=== PATIENT | female | born 1995 | race Caucasian/White ===

== ENCOUNTER 2019-04-08 07:52 | Inpatient (IN) | payer OTHER ==
[~2019-04-08] VITALS: Ht 172.7 cm; Wt 71.0 kg
--- OUTSIDE RECORDS SUMMARY | ~2019-04-08 | XMS | Clinical Summary ---
Demographics + + + | Address | [address] | | | [place] [address] | + + + | Home Phone | | + + + | Preferred Language | Unknown | + + + | Marital Status | Single | + + + | Baptist Affiliation | Unknown | + + + | Race | Unknown | + + + | Ethnic Group | Unknown | + + + Author + + + | Author | [facility] | | | and [place] | + + + | Organization | [facility] | | | and [place] | + + + | Address | Unknown | + + + | Phone | Unavailable | + + + Support + + + + + | Name | Relationship | Address | Phone | + + + + + | Nolan Velasco | ECON | N/A | | | | | [place] [address] | | + + + + + | Thomas Velasco | ECON | [address] | | | [place] | | [place] | | | | | [address] | | + + + + + Care Team Providers + +------+ + | Care Bus Matron Name | Role | Phone | + +------+ + PCP | Unavailable | + +------+ + Allergies Not on File Medications Not on file Active Problems Not on file Social History + +-------+ +--------+------+ | Tobacco Use | Types | Packs/Day | Years | Date | | | | | Used | | + +-------+ +--------+------+ | Never Assessed | | | | | + +-------+ +--------+------+ + + + | Sex Assigned at | Date Recorded | | | | + + + | Not on file | | + + + + + + + | Job Start Date | Occupation | Industry | + + + + | Not on file | Not on file | Not on file | + + + + + + + + | Travel History | Travel Start | Travel End | + + + + + + | No recent travel history available. | + + Last Filed Vital Signs Not on file Plan of Treatment + + + + + | Health Maintenance | Due Date | Last Done | Comments | + + + + + | Vaccine: HPV (1 - | | | | | Female 3-dose | 2 | | | | series) | | | | + + + + + | Vaccine: | | | | | Dtap/Tdap/Td (1 - | 6 | | | | Tdap) | | | | + + + + + | Cervical Cancer | | | | | Screening (Pap) | 8 | | | + + + + + | Vaccine: Influenza | | | | | (#1) | 9 | | | + + + + + Results Not on filefrom Last 3 Months"
--- OUTSIDE RECORDS SUMMARY | ~2019-04-08 | XMS ---
Demographics + + + | Address | [address] | | | [place] [address] | + + + | Preferred Language | Unknown | + + + | Marital Status | Unknown | + + + | Amish Affiliation | Unknown | + + + | Race | Unknown | + + + | Ethnic Group | Unknown | + + + Author + + + | Author | [facility] | + + + | Organization | [facility] | + + + | Address | [address] | | | [place] [address] | + + + | Phone | | + + + Care Team Providers + + + + | Care Stock Worker And Deliverer Name | Role | Phone | + + + + Unavailable | Unavailable | + + + + PROBLEMS +---------+ + + +--------+ + + | Type | Condition | ICD9-CM | [id number] | Onset | Condition | SNOMED | | | | Code | Code | Dates | Status | Code | +---------+ + + +--------+ + + | Problem | Depression | 311 | | | Active | [id number] | +---------+ + + +--------+ + + ALLERGIES Unknown Allergies SOCIAL HISTORY No smoking Hx information available PLAN OF CARE VITAL SIGNS MEDICATIONS + + + + + + + +--------+ | Medicati | Instruct | Dosage | Frequenc | Start | End Date | Duration | Status | | on | ions | | y | Date | | | | + + + + + + + +--------+ | Citalopr | Orally | 1 tablet | 24h | 02 Ryan, | | 30 days | Active | | am | Once a | | | 2017 | | | | | Hydrobro | day | | | | | | | | mide 20 | | | | | | | | | MG | | | | | | | | + + + + + + + +--------+ RESULTS No Results PROCEDURES No Known procedures IMMUNIZATIONS No Known Immunizations"
--- OUTSIDE RECORDS SUMMARY | ~2019-04-08 | XMS ---
Demographics + + + | Address | [address] | | | [place] [address] | + + + | Preferred Language | Unknown | + + + | Marital Status | Unknown | + + + | Rastafarian Affiliation | Unknown | + + + | Race | Unknown | + + + | Ethnic Group | Unknown | + + + Author + + + | Author | [facility] | + + + | Organization | [facility] | + + + | Address | [address] | | | [place] [address] | + + + | Phone | | + + + Care Team Providers + + + + | Care Data Warehousing Architect Name | Role | Phone | + + + + Unavailable | Unavailable | + + + + PROBLEMS +---------+ + + +--------+ + + | Type | Condition | ICD9-CM | [id number] | Onset | Condition | SNOMED | | | | Code | Code | Dates | Status | Code | +---------+ + + +--------+ + + | Problem | Depression | 311 | | | Active | [id number] | +---------+ + + +--------+ + + ALLERGIES Unknown Allergies SOCIAL HISTORY No smoking Hx information available PLAN OF CARE VITAL SIGNS MEDICATIONS + + + + +--------+ + +--------+ | Medicati | Instruct | Dosage | Frequenc | Start | End Date | Duration | Status | | on | ions | | y | Date | | | | + + + + +--------+ + +--------+ | Mirtazap | Orally | 1 tablet | 24h | | | 30 days | Active | | ine 30 | Once a | | | | | | | | MG | day | | | | | | | + + + + +--------+ + +--------+ RESULTS No Results PROCEDURES No Known procedures IMMUNIZATIONS No Known Immunizations"
--- OUTSIDE RECORDS SUMMARY | ~2019-04-08 | XMS ---
Demographics + + + | Address | [address] | | | [place] [address] | + + + | Preferred Language | Unknown | + + + | Marital Status | Unknown | + + + | Yarsanism Affiliation | Unknown | + + + | Race | Unknown | + + + | Ethnic Group | Unknown | + + + Author + + + | Author | [facility] | + + + | Organization | [facility] | + + + | Address | [address] | | | [place] [address] | + + + | Phone | | + + + Care Team Providers + + + + | Care Digital Controls Technical Officer Name | Role | Phone | + + + + Unavailable | Unavailable | + + + + PROBLEMS + + + + + + + + | Type | Condition | ICD9-CM | [id number] | Onset | Condition | SNOMED | | | | Code | Code | Dates | Status | Code | + + + + + + + + | Problem | Depression | 311 | | | Active | [id number] | + + + + + + + + | Assessment | Moderate | F33.1 | | 17 Sep, | Active | [id number] | | | episode of | | | 2016 | | | | | recurrent | | | | | | | | major | | | | | | | | depressive | | | | | | | | disorder | | | | | | + + + + + + + + | Assessment | Encounter | | Z13.89 | 17 Sep, | Active | [id number] | | | for | | | 2016 | | | | | screening | | | | | | | | for other | | | | | | | | disorder | | | | | | + + + + + + + + ALLERGIES + + + + +--------+ | Substance | Reaction | Event Type | Date | Status | + + + + +--------+ | Allergy to IV | rash/swelling | Non Drug | Sep, | Active | | contrast | | Allergy | | | + + + + +--------+ SOCIAL HISTORY No smoking Hx information available PLAN OF CARE VITAL SIGNS + + + + | Height | 67 in | 2016-10-07 | + + + + | Weight | 113.5 lbs | 2016-10-07 | + + + + | BMI | 17.77 kg/m2 | 2016-10-07 | + + + + | Heart Rate | 98 /min | 2016-10-07 | + + + + | Blood pressure systolic | 113 mm Hg | 2016-10-07 | + + + + | Blood pressure diastolic | 71 mm Hg | 2016-10-07 | + + + + MEDICATIONS + + + + +--------+ + [...] +--------+ + +--------+ RESULTS No Results PROCEDURES + + + + + | Procedure | Date Ordered | Related Diagnosis | Body Site | + + + + + | Est Level III | October 07, 2016 | | | | Intermediate | | | | + + + + + IMMUNIZATIONS No Known Immunizations"
--- OUTSIDE RECORDS SUMMARY | ~2019-04-08 | XMS ---
Demographics + + + | Address | [address] | | | [place] [address] | + + + | Preferred Language | Unknown | + + + | Marital Status | Unknown | + + + | Episcopal Affiliation | Unknown | + + + | Race | Unknown | + + + | Ethnic Group | Unknown | + + + Author + + + | Author | [facility] | + + + | Organization | [facility] | + + + | Address | [address] | | | [place] [address] | + + + | Phone | | + + + Care Team Providers + + + + | Care Rug Clipper Name | Role | Phone | + + + + Unavailable | Unavailable | + + + + PROBLEMS +---------+ + + +--------+ + + | Type | Condition | ICD9-CM | [id number] | Onset | Condition | SNOMED | | | | Code | Code | Dates | Status | Code | +---------+ + + +--------+ + + | Problem | Depression | 311 | | | Active | [id number] | +---------+ + + +--------+ + + ALLERGIES No Information SOCIAL HISTORY Never Assessed PLAN OF CARE VITAL SIGNS MEDICATIONS Unknown Medications RESULTS No Results PROCEDURES No Known procedures IMMUNIZATIONS No Known Immunizations MEDICAL (GENERAL) HISTORY + + +------+ | Type | Description | Date | + + +------+ | Medical History | Depression/Anxiety - | | | | fluoxetine resulted in | | | | weight loss, mirtazapine | | | | resulted in sig somnolence | | + + +------+"
--- OUTSIDE RECORDS SUMMARY | ~2019-04-08 | XMS ---
Demographics + + + | Address | [address] | | | [place] [address] | + + + | Preferred Language | Unknown | + + + | Marital Status | Unknown | + + + | Christian Affiliation | Unknown | + + + | Race | Unknown | + + + | Ethnic Group | Unknown | + + + Author + + + | Author | [facility] | + + + | Organization | [facility] | + + + | Address | [address] | | | [place] [address] | + + + | Phone | | + + + Care Team Providers + + + + | Care Job Interviewer Name | Role | Phone | + + + + Unavailable | Unavailable | + + + + PROBLEMS +---------+ + + +--------+ + + | Type | Condition | ICD9-CM | [id number] | Onset | Condition | SNOMED | | | | Code | Code | Dates | Status | Code | +---------+ + + +--------+ + + | Problem | Depression | 311 | | | Active | [id number] | +---------+ + + +--------+ + + ALLERGIES + + + + +--------+ | Substance | Reaction | Event Type | Date | Status | + + + + +--------+ | Allergy to IV | rash/swelling | Non Drug | Nov, | Active | | contrast | | Allergy | | | + + + + +--------+ SOCIAL HISTORY No smoking Hx information available PLAN OF CARE + +---------+ | Activity | Details | + +---------+ +---+ | | +---+ + + + | Follow Up | 4 Weeks Reason:null | + + + VITAL SIGNS + + + + | Height | 67 in | 2016-11-22 | + + + + | Weight | 114.5 lbs | 2016-11-22 | + + + + | BMI | 17.93 kg/m2 | 2016-11-22 | + + + + | Heart Rate | 114 /min | 2016-11-22 | + + + + | Blood pressure systolic | 126 mm Hg | 2016-11-22 | + + + + | Blood pressure diastolic | 76 mm Hg | 2016-11-22 | + + + + MEDICATIONS + + + + + + + +--------+ | Medicati | Instruct | Dosage | Frequenc | Start | End Date | Duration | Status | | on | ions | | y | Date | | | | + + + + + + + +--------+ | Citalopr | Orally | 1 tablet | 24h | 02 Ryan, | | 30 | Active | | am | Once a | | | 2017 | | day(s) | | | Hydrobro | day | | | | | | | | mide 20 | | | | | | | | | MG | | | | | | | | + + + + + + + +--------+ RESULTS No Results PROCEDURES + + + + + | Procedure | Date Ordered | Related Diagnosis | Body Site | + + + + + | Est Level III | November 22, 2016 | | | | Intermediate | | | | + + + + + IMMUNIZATIONS No Known Immunizations"
--- OUTSIDE RECORDS SUMMARY | ~2019-04-08 | XMS ---
Demographics + + + | Address | [address] | | | [place] [address] | + + + | Preferred Language | Unknown | + + + | Marital Status | Unknown | + + + | Sabianist Affiliation | Unknown | + + + | Race | Unknown | + + + | Ethnic Group | Unknown | + + + Author + + + | Author | [facility] | + + + | Organization | [facility] | + + + | Address | [address] | | | [place] [address] | + + + | Phone | | + + + Care Team Providers + + + + | Care Parts Counter Associate Name | Role | Phone | + + + + Unavailable | Unavailable | + + + + PROBLEMS +---------+ + + +--------+ + + | Type | Condition | ICD9-CM | DKP54-PG | Onset | Condition | SNOMED | | | | Code | Code | Dates | Status | Code | +---------+ + + +--------+ + + | Problem | Depression | 311 | | | Active | [id number] | +---------+ + + +--------+ + + ALLERGIES Unknown Allergies SOCIAL HISTORY No smoking Hx information available PLAN OF CARE VITAL SIGNS MEDICATIONS Unknown Medications RESULTS No Results PROCEDURES No Known procedures IMMUNIZATIONS No Known Immunizations"
--- OUTSIDE RECORDS SUMMARY | ~2019-04-08 | XMS ---
Demographics + + + | Address | [address] | | | [place] [address] | + + + | Preferred Language | Unknown | + + + | Marital Status | Unknown | + + + | Congregational Affiliation | Unknown | + + + | Race | Unknown | + + + | Ethnic Group | Unknown | + + + Author + + + | Author | [facility] | + + + | Organization | [facility] | + + + | Address | [address] | | | [place] [address] | + + + | Phone | | + + + Care Team Providers + + + + | Care Rate Examiner Name | Role | Phone | + + + + Unavailable | Unavailable | + + + + PROBLEMS +---------+ + + +--------+ + + | Type | Condition | ICD9-CM | [id number] | Onset | Condition | SNOMED | | | | Code | Code | Dates | Status | Code | +---------+ + + +--------+ + + | Problem | Depression | 311 | | | Active | [id number] | +---------+ + + +--------+ + + ALLERGIES + + + + +--------+ | Substance | Reaction | Event Type | Date | Status | + + + + +--------+ | Allergy to IV | rash/swelling | Non Drug | Dec, | Active | | contrast | | Allergy | | | + + + + +--------+ SOCIAL HISTORY No smoking Hx information available PLAN OF CARE + +---------+ | Activity | Details | + +---------+ +---+ | | +---+ + + + | Follow Up | 1 Week Reason:null | + + + | Pending Test | Comp. Metabolic Panel (14) | + + + | Pending Test | Iron Deficiency Panel | + + + | Pending Test | Vitamin B12 | + + + | Pending Test | Folate | + + + | Pending Test | Vitamin D 25-OH | + + + | Pending Test | CBC | + + + VITAL SIGNS + + + + | Height | 67 in | 2017-01-17 | + + + + | Weight | 108.7 lbs | 2017-01-17 | + + + + | BMI | 17.02 kg/m2 | 2017-01-17 | + + + + | Heart Rate | 111 /min | 2017-01-17 | + + + + | Blood pressure systolic | 115 mm Hg | 2017-01-17 | + + + + | Blood pressure diastolic | 68 mm Hg | 2017-01-17 | + + + + MEDICATIONS + + + + +--------+ + +--------+ | Medicati | Instruct | Dosage | Frequenc | Start | End Date | Duration | Status | | on | ions | | y | Date | | | | + + + + +--------+ + +--------+ | Citalopr | Orally | 1 tablet | 24h | | | 30 | Active | | am | Once a | | | | | day(s) | | | Hydrobro [...] + + | Est Level III | January 17, 2017 | | | | Intermediate | | | | + + + + + IMMUNIZATIONS No Known Immunizations"
--- NOTE | 2019-04-08 10:47 | PR ---
[facility] [address] [place], [place] [address] Signed Progress Notes IP Datetime Report Generated by CPN: 04/08/2019 10:47 PROGRESS NOTES: [id number] Impression: Reassuring heart rate Procedures: Artificial ROM Plan: Continue present management Informed Consent Obtain: Vaginal Delivery Other Informed Consents: AROM VITAL SIGNS: [id number] Vital Signs: Reviewed; Within Normal Limits VS Notable Details: Glucose 74 EXAM: [id number] Dilatation: 4.0 Effacement: 70 Station: -2 Uterine Contractions: q 3-4 minutes MEMBRANES: [id number] Membrane Status: Ruptured Amniotic Fluid Color: Clear ROM Note: After verbal consent obtained, vertex was evaluated and found to be well applied to cervix. Cervix ripe. AROM then easily performed for moderate amount of clear fluid. Mother and baby tolerated well. Comments: Pt seen and evaluated. Doing well. Rare contractions. Discussed AROM, and after verbal consent obtained, AROM performed without difficulty. Reviewed anticipated course of labor. All questions answered Fetus A: [id number] FHR Baseline: 150 Variability: Moderate 6-25bpm Accelerations: 15X15 Decelerations: None FHR Category: Category I Presentation: Vertex Comments on Fetus A: No evidence of metabolic acidosis Fetus B: [id number] Signing Physician: Rakesh Greer DO Copies: *Electronically Signed* 04/08/19 1047 RAKESH GREER DO PATIENT NAME: RANULFO MOYA PROGRESS NOTE DATE OF : 96 PHYSICIAN: RAKESH GREER DO RPT #: [id number] REPORT IS CONFIDENTIAL AND NOT TO BE RELEASED WITHOUT AUTHORIZATION [facility] [address] [place], [place] [address] Signed ~ *Electronically Signed* 04/08/19 1047 RAKESH GREER DO PATIENT NAME: RANULFO MOYA PROGRESS NOTE DATE OF : 96 PHYSICIAN: RAKESH GREER DO RPT #: [id number] REPORT IS CONFIDENTIAL AND NOT TO BE RELEASED WITHOUT AUTHORIZATION
--- NOTE | 2019-04-08 15:36 | PR ---
[facility] [address] [place], [place] [address] Signed Progress Notes IP Datetime Report Generated by CPN: 04/08/2019 15:36 PROGRESS NOTES: [id number] Impression: Normal progression of labor; Reassuring heart rate Procedures: Artificial ROM Plan: Continue present management Informed Consent Obtain: Vaginal Delivery Other Informed Consents: AROM VITAL SIGNS: [id number] Vital Signs: Reviewed; Within Normal Limits VS Notable Details: Recent glucose 86 EXAM: [id number] Dilatation: 6.0 Effacement: 75 Station: -2 Uterine Contractions: q 4-5 minutes MEMBRANES: [id number] Membrane Status: Ruptured Amniotic Fluid Color: Clear ROM Note: After verbal consent obtained, vertex was evaluated and found to be well applied to cervix. Cervix ripe. AROM then easily performed for moderate amount of clear fluid. Mother and baby tolerated well. Comments: Pt sleeping in bed. Comfortable w/ epidural. FHT reassuring. Continue expectant management. If unchanged at next exam, consider IUPC/pitocin. Fetus A: [id number] FHR Baseline: 140 Variability: Moderate 6-25bpm Accelerations: 15X15 Decelerations: Variable FHR Category: Category II Presentation: Vertex Comments on Fetus A: No evidence of metabolic acidosis Fetus B: [id number] Signing Physician: Rakesh Greer DO Copies: *Electronically Signed* 04/08/19 1536 RAKESH GREER DO PATIENT NAME: RANULFO MOYA PROGRESS NOTE DATE OF : 96 PHYSICIAN: RAKESH GREER DO RPT #: [id number] REPORT IS CONFIDENTIAL AND NOT TO BE RELEASED WITHOUT AUTHORIZATION [address] [place], [place] [address] Signed ~ *Electronically Signed* 04/08/19 1536 RAKESH GREER DO PATIENT NAME: RANULFO MOYA PROGRESS NOTE DATE OF : 96 PHYSICIAN: RAKESH GREER DO RPT #: [id number] REPORT IS CONFIDENTIAL AND NOT TO BE RELEASED WITHOUT AUTHORIZATION
--- NOTE | 2019-04-08 16:32 | PR ---
[facility] [address] [place], [place] [address] Signed Progress Notes IP Datetime Report Generated by CPN: 04/08/2019 16:32 PROGRESS NOTES: [id number] Impression: Normal progression of labor; Reassuring heart rate Procedures: Sterile Vag Exam Plan: Continue present management; Anticipate Vaginal Delivery Informed Consent Obtain: Vaginal Delivery Other Informed Consents: AROM VITAL SIGNS: [id number] Vital Signs: Reviewed VS Notable Details: Hypotensive @ 16:17; improved EXAM: [id number] Dilatation: 9.5 Effacement: 100 Station: -1 Uterine Contractions: q2-4 minutes MEMBRANES: [id number] Membrane Status: Ruptured Amniotic Fluid Color: Clear ROM Note: After verbal consent obtained, vertex was evaluated and found to be well applied to cervix. Cervix ripe. AROM then easily performed for moderate amount of clear fluid. Mother and baby tolerated well. Comments: Pt seen and examined. Doing well. Comfortable w/ epidural. Pt now 9.5cm. Late deceration noted @ 16:14. FHT improved w/ maternal repositioning and O2. Will continue to monitor closely. Anticipate soon. Fetus A: [id number] FHR Baseline: 140 Variability: Moderate 6-25bpm Accelerations: None Decelerations: Late FHR Category: Category II Presentation: Vertex Other Presentation: JOSE Comments on Fetus A: No evidence of metabolic acidosis Fetus B: [id number] Signing Physician: Rakesh Greer DO Copies: *Electronically Signed* 04/08/19 3848 RAKESH GREER DO PATIENT NAME: RANULFO MOYA PROGRESS NOTE DATE OF : 96 PHYSICIAN: RAKESH GREER DO RPT #: [id number] REPORT IS CONFIDENTIAL AND NOT TO BE RELEASED WITHOUT AUTHORIZATION [address] [place], [place] [address] Signed ~ *Electronically Signed* 04/08/19 1632 RAKESH GREER DO PATIENT NAME: RANULFO MOYA PROGRESS NOTE DATE OF : 96 PHYSICIAN: RAKESH GREER DO RPT #: [id number] REPORT IS CONFIDENTIAL AND NOT TO BE RELEASED WITHOUT AUTHORIZATION
--- NOTE | 2019-04-08 16:33 | PR ---
[facility] [address] [place], [place] [address] Signed Progress Notes IP Datetime Report Generated by CPN: 04/08/2019 16:33 PROGRESS NOTES: [id number] Impression: Normal progression of labor; Reassuring heart rate Procedures: Sterile Vag Exam Plan: Continue present management; Anticipate Vaginal Delivery Informed Consent Obtain: Vaginal Delivery Other Informed Consents: AROM VITAL SIGNS: [id number] Vital Signs: Reviewed VS Notable Details: Hypotensive @ 16:17; improved EXAM: [id number] Dilatation: 9.5 Effacement: 100 Station: -1 Uterine Contractions: q2-4 minutes MEMBRANES: [id number] Membrane Status: Ruptured Amniotic Fluid Color: Clear ROM Note: After verbal consent obtained, vertex was evaluated and found to be well applied to cervix. Cervix ripe. AROM then easily performed for moderate amount of clear fluid. Mother and baby tolerated well. Comments: Pt seen and examined. Doing well. Comfortable w/ epidural. Pt now 9.5cm. Late deceration noted @ 16:14. FHT improved w/ maternal repositioning and O2. Will continue to monitor closely. Anticipate soon. Fetus A: [id number] FHR Baseline: 140 Variability: Moderate 6-25bpm Accelerations: None Decelerations: Late FHR Category: Category II Presentation: Vertex Other Presentation: JOSE Comments on Fetus A: No evidence of metabolic acidosis Fetus B: [id number] Signing Physician: Rakesh Greer DO Copies: *Electronically Signed* 04/08/19 0180 RAKESH GREER DO PATIENT NAME: RANULFO MOYA PROGRESS NOTE DATE OF : 96 PHYSICIAN: RAKSEH GREER DO RPT #: [id number] REPORT IS CONFIDENTIAL AND NOT TO BE RELEASED WITHOUT AUTHORIZATION [address] [place], [place] [address] Signed ~ *Electronically Signed* 04/08/19 1633 RAKESH GREER DO PATIENT NAME: RANULFO MOYA PROGRESS NOTE DATE OF : 96 PHYSICIAN: RAKESH GREER DO RPT #: [id number] REPORT IS CONFIDENTIAL AND NOT TO BE RELEASED WITHOUT AUTHORIZATION
--- NOTE | 2019-04-08 17:34 | PR ---
[facility] [address] [place], [place] [address] Signed Progress Notes IP Datetime Report Generated by CPReynaldo: 04/08/2019 17:34 PROGRESS NOTES: [id number] Impression: Normal progression of labor; Reassuring heart rate Procedures: Sterile Vag Exam Other Procedures: Pt pushing w/ ctxs Plan: Continue present management; Anticipate Vaginal Delivery Informed Consent Obtain: Vaginal Delivery; Vacuum/Forceps Assist Other Informed Consents: AROM VITAL SIGNS: [id number] Vital Signs: Reviewed VS Notable Details: Hypotensive @ 16:17; improved EXAM: [id number] Dilatation: 10.0 Effacement: 100 Station: 2 Uterine Contractions: q2 minutes MEMBRANES: [id number] Membrane Status: Ruptured Amniotic Fluid Color: Clear ROM Note: After verbal consent obtained, vertex was evaluated and found to be well applied to cervix. Cervix ripe. AROM then easily performed for moderate amount of clear fluid. Mother and baby tolerated well. Comments: Pt pushing well w/ contractions. Progress noted with each contraction. Pelvis adequate. Anticipated . Reviewed indications for operative vaginal delivery if needed. Fetus A: [id number] FHR Baseline: Indeterminate Variability: Moderate 6-25bpm Accelerations: None Decelerations: Variable FHR Category: Category II Presentation: Vertex Other Presentation: LESLEY Comments on Fetus A: No evidence of metabolic acidosis Fetus B: [id number] Signing Physician: Rakesh Greer DO *Electronically Signed* 04/08/19 6555 RAKESH GREER DO PATIENT NAME: RANULFO MOYA PROGRESS NOTE DATE OF : 96 PHYSICIAN: RAKESH GREER DO RPT #: [id number] REPORT IS CONFIDENTIAL AND NOT TO BE RELEASED WITHOUT AUTHORIZATION [facility] [address] [facility] [place], [place] [address] Signed Copies: ~ *Electronically Signed* 04/08/19 1734 RAKESH GREER DO PATIENT NAME: RANULFO MOYA PROGRESS NOTE DATE OF : 96 PHYSICIAN: RAKESH GREER DO RPT #: [id number] REPORT IS CONFIDENTIAL AND NOT TO BE RELEASED WITHOUT AUTHORIZATION
--- NOTE | 2019-04-09 09:25 | PR ---
[facility] [address] [facility] [place], [place] [address] Signed PP Progress Notes Datetime Report Generated by CPN: 04/09/2019 09:25 SUBJECTIVE: [id number] Pain: Within normal limits Nausea/Vomiting: Denies Flatus: Yes Bowel Movement: No Vital Signs: [id number] Vital Signs: Reviewed; Within Normal Limits EXAM: [id number] Cardiovascular: Normal Respiratory: Normal Abdomen/Uterus: Normal Lochia: Normal Vulva/Perineum: Normal Breasts: Not Done CVA Tenderness: Normal Extremities: Normal Incision: Not Applicable Progress: Normal Exam Comments: Vulva much improved from last night. Fundus firm U-2 nontender IMPRESSION/PLAN/PROCEDURES: [id number] Impression: Normal progression Plan: Continue present management Progress Notes: Pt seen and examined. Vulva much improved. Progressing nicely. Anticipate d/c home tomorrow. Hgb 11.4 Signing Physician: Rakesh Greer DO Copies: ~ *Electronically Signed* 04/09/19 0925 RAKESH GREER DO PATIENT NAME: RANULFO MOYA PROGRESS NOTE DATE OF : [birth year] PHYSICIAN: RAKESH GREER DO RPT #: [id number] REPORT IS CONFIDENTIAL AND NOT TO BE RELEASED WITHOUT AUTHORIZATION
--- NOTE | 2019-04-10 10:57 | PR ---
[facility] [address] [facility] [place], [place] [address] Signed PP Progress Notes Datetime Report Generated by CPN: 04/10/2019 10:57 SUBJECTIVE: [id number] Pain: Within normal limits Nausea/Vomiting: Denies Flatus: Yes Bowel Movement: Yes Vital Signs: [id number] Vital Signs: Reviewed; Within Normal Limits EXAM: [id number] Cardiovascular: Normal Respiratory: Normal Abdomen/Uterus: Normal Lochia: Normal Vulva/Perineum: Not Done Breasts: Not Done CVA Tenderness: Normal Extremities: Normal Incision: Not Applicable Progress: Normal Exam Comments: Fundus firm U-2 nontender IMPRESSION/PLAN/PROCEDURES: [id number] Impression: Normal progression Plan: Discharge Progress Notes: Pt seen and examined. Doing well. Ambulating, voiding, and tolerating full diet. Pain and lochia minimal. well. No other concerns. Desires d/c home today. F/U 2 wks Signing Physician: Rakesh Greer DO Copies: ~ *Electronically Signed* 04/10/19 1057 RAKESH GREER DO PATIENT NAME: RANULFO MOYA PROGRESS NOTE DATE OF : 96 PHYSICIAN: RAKESH GREER DO RPT #: [id number] REPORT IS CONFIDENTIAL AND NOT TO BE RELEASED WITHOUT AUTHORIZATION
== END 2019-04-10 13:25 | disposition home or self-care (01) | DRG 807 ==
LOC: FBC 07:52
PROVIDERS: ADMIT Obstetrics & Gynecology
PROC: 10E0XZZ Delivery of Products of Conception, External Approach (ICD-10-PCS; principal; 2019-04-08)
PROC: 0KQM0ZZ Repair Perineum Muscle, Open Approach (ICD-10-PCS; 2019-04-08)
PROC: 10907ZC Drainage of Amniotic Fluid, Therapeutic from Products of Conception, Via Natural or Artificial Opening (ICD-10-PCS; 2019-04-08)
PROC: 00HU33Z Insertion of Infusion Device into Spinal Canal, Percutaneous Approach (ICD-10-PCS; 2019-04-08)
PROC: 3E0R3BZ Introduction of Anesthetic Agent into Spinal Canal, Percutaneous Approach (ICD-10-PCS; 2019-04-08)
DX: O24.420 Gestational diabetes mellitus in childbirth, diet controlled (principal); Z37.0 Single live birth; Z3A.39 39 weeks gestation of pregnancy; O76 Abnormality in fetal heart rate and rhythm complicating labor and delivery; O99.344 Other mental disorders complicating childbirth; F31.9 Bipolar disorder, unspecified; O70.1 Second degree perineal laceration during delivery; O69.81X0 Labor and delivery complicated by cord around neck, without compression, not applicable or unspecified; Z87.440 Personal history of urinary (tract) infections; Z79.899 Other long term (current) drug therapy; Z91.041 Radiographic dye allergy status
CPT/HCPCS: 36415; 82803; 85027; J2590; J7120